=== PATIENT | female | born 1940 | race Caucasian/White ===

== ENCOUNTER → 2017-09-14 | Outpatient (CLI) | payer MEDICARE, OTHER ==
[~2017-09-14] MED LIST: ACE3 PO; CALC-797 PO; Diabetes Supplies MC; LANS30CA70 PO; LIS10 PO; LISI-362 PO; MECL25TA9 PO; METF-411 PO; MULT-885 PO; MULTIVIT PO; OMEG-11 PO; OMEP-125 PO; OMEP-218 PO; PNEU0.5D3 IM; POTA99TA6 PO
[2017-09-14 07:56] LABS: PLATELET COUNT, AUTOMATED 165 K/uL (150-450)
[2017-09-14 08:50] LABS: LDL CHOLESTEROL 118 mg/dl
== END ==
LOC: LAB 07:09
PROVIDERS: ATTEND Nurse Practitioner Family
DX: E78.5 Hyperlipidemia, unspecified (principal); I10 Essential (primary) hypertension; E11.9 Type 2 diabetes mellitus without complications
CPT/HCPCS: 36415; 82040; 82247; 82310; 82374; 82435; 82465; 82565; 82947; 83036; 83718; 84075; 84132; 84155; 84295; 84443; 84450; 84460; 84478; 84520; 85025

== ENCOUNTER → 2017-10-25 | Outpatient (CLI) | payer MEDICARE, OTHER ==
[~2017-10-25] MED LIST changes: +ROSU5TAB3 PO
--- NOTE | 2017-10-25 09:20 | RADIOLOGY IMAGING REPORT ---
FACILITY: [facility] - [place], [place] PATIENT NAME: Violetta Escalante : 1940 MR: [id number] V: [id number] EXAM DATE: ORDERING PHYSICIAN: ALESSIA DUARTE TECHNOLOGIST: [place] [facility] [place]ta Escal[place] : 1940 Visit/Account:[id number] Date of Sevice: 10/25/2017 LIVER HISTORY: Fatty liver COMPARISON: September 26, 2016 FINDINGS: Gallbladder: There are multiple stones within the gallbladder although no evidence of gallbladder wal l thickening pericholecystic fluid or positive Rinaldi sign. Liver: Liver texture slightly heterogeneous although discrete mass is not demonstrated. The liver me asures 15.6 cm in length Common duct: Normal, 4.1 mm diameter. Pancreas: Partially obscured by bowel, visualized aspects unremarkable. Right kidney: Right kidney appears unremarkable as imaged measuring 9.8 cm in length Upper abdominal aorta and IVC: Patent. Ascites: None visualized. IMPRESSION: Cholelithiasis although no evidence of gallbladder wall thickening, pericholecystic fluid, positive M urphy sign or biliary ductal dilatation Liver texture appears slightly heterogeneous although discrete mass is not seen Report Dictated By: Annelise Franco MD at 10/25/2017 9:14 AM Report E-Signed By: Annelise Franco MD at 10/25/2017 9:17 AM WSN:[email or web address]
== END ==
LOC: US 00:20
PROVIDERS: ATTEND Nurse Practitioner Family
DX: K80.20 Calculus of gallbladder without cholecystitis without obstruction (principal)
CPT/HCPCS: 76705

== ENCOUNTER 2017-10-26 00:46 | Day surgery (SDC) | payer MEDICARE, OTHER ==
[~2017-10-26] VITALS: Ht 152.4 cm; Wt 59.0 kg
[2017-10-26 11:10] VITALS: BP 160/71
[2017-10-26] MEDS ORDERED: LIDOCAINE/SOD BICARB 8.4% SYR ID ONE (11:20)
[2017-10-26] MEDS ORDERED: NORMOSOL R SOLN(*) 1000 ML BAG 1,000 ML IV PRN (11:20)
[2017-10-26 13:21] VITALS: BP 93/41
[2017-10-26 13:30] VITALS: BP 101/47
[2017-10-26 14:04] VITALS: BP 130/56
[2017-10-26 14:06] VITALS: BP 144/66
== END 2017-10-26 14:13 | disposition home or self-care (01) ==
LOC: OR 00:46
PROVIDERS: ATTEND Internal Medicine Gastroenterology
DX: K31.7 Polyp of stomach and duodenum (principal); K44.9 Diaphragmatic hernia without obstruction or gangrene; K20.9 Esophagitis, unspecified
CPT/HCPCS: 36415; 82040; 82247; 82310; 82374; 82435; 82565; 82947; 84075; 84132; 84155; 84295; 84450; 84460; 84520; 88305; 88344

== ENCOUNTER → 2017-11-15 | Outpatient (CLI) | payer MEDICARE, OTHER ==
[~2017-11-15] MED LIST changes: -METF-411 PO; +METF-450 PO
--- NOTE | 2017-11-15 13:48 | RADIOLOGY IMAGING REPORT ---
FACILITY: [facility] PATIENT NAME: Violetta Escalante : 1940 MR: [id number] V: [id number] EXAM DATE: ORDERING PHYSICIAN: MANNY MARIE TECHNOLOGIST: [place] [facility] [place] Violetta Escalante : 1940 Visit/Account:[id number] Date of Sevice: 11/15/2017 DEXA Scan Clinical history: Screening. Comparison: 08/21/2012. LUMBAR SPINE: The bone mineral density (BMD) measured from L1-L4 correlates with a Z-score of 2.4 and a T-score of 0.4 which is within normal range as defined by the World Health Organization. The corresponding risk of fracture in the lumbar spine is not increased compared with a young adult r eference population. This value has increased by 2.2 % since the prior study. More than 5% change i s considered significant. HIP: Bone mineral density (BMD) measured in the Left Total Hip region correlates with a Z-score of 1.8 and a T-score of -0.3. The T-score of the femoral neck is -1.0. The lower of the two T-scores is within normal range although the neck is borderline ost eopenic as defined by the World Health Organization. The corresponding risk of fracture in the hip i s minimally increased compared with a young adult reference population. This value has decreased by 7.1 % since the prior study. More than 5% change is considered significant. Bone mineral density (BMD) measured in the Left Femoral Neck region measures 0.893 g/cm?. IMPRESSION: 1. Lumbar spine: Within normal range. There has been no significant change in the bone mineral den sity since the previous exam. 2. Left Total Hip: The neck is borderline osteopenic. There has been significant decrease in the alem ne mineral density since the previous exam. The next DEXA scan of this patient should include the following sites: L1-L4 and Left hip. FRAX? WHO Fracture Risk Assessment Tool link: <http://www.shef.ac.uk/FRAX/tool.jsp?locationValue=9> PLEASE NOTE: 1) The World Health Organization defines low BMD as follows: T-score Normal > -1 Osteopenia < -1 and > -2.5 Osteoporosis < -2.5 without fractures Established osteoporosis < -2.5 with fractures 2) In general, you may wish to consider: Diagnosis Treatment Follow-up DEXA Normal BMD Prevention 2-3 years Osteopenia Prevention/therapy 1-2 years Osteoporosis Therapy Yearly 3) Fracture risk estimated from the T-score is more accurate for vertebral fractures (often spontane ous) than for hip fractures. Report Dictated By: Darrick Cardoso MD at 11/15/2017 1:40 PM Report E-Signed By: Darrick Cardoso MD at 11/15/2017 1:43 PM WSN:[id number]
== END ==
LOC: RAD 01:15
PROVIDERS: ATTEND Nurse Practitioner Family
DX: M85.80 Other specified disorders of bone density and structure, unspecified site (principal)
CPT/HCPCS: 77080

== ENCOUNTER → 2018-03-02 | Outpatient (CLI) | payer MEDICARE, OTHER ==
[2018-03-02 07:59] LABS: LDL CHOLESTEROL 55 mg/dl
== END ==
LOC: LAB 07:09
PROVIDERS: ATTEND Nurse Practitioner Family
DX: E11.9 Type 2 diabetes mellitus without complications (principal); E78.5 Hyperlipidemia, unspecified
CPT/HCPCS: 36415; 82040; 82247; 82310; 82374; 82435; 82465; 82565; 82947; 83036; 83718; 84075; 84132; 84155; 84295; 84450; 84460; 84478; 84520

== ENCOUNTER → 2018-09-28 | Outpatient (CLI) | payer MEDICARE, OTHER ==
[~2018-09-28] MED LIST changes: -OMEP-125 PO; +OMEP-126 PO; +ROSU10TA PO; +ROSU5TAB8 PO; +VARI50KI IM
[2018-09-28 07:31] LABS: PLATELET COUNT, AUTOMATED 146 K/uL (150-450)
[2018-09-28 07:55] LABS: LDL CHOLESTEROL 85 mg/dl
== END ==
LOC: LAB 07:04
PROVIDERS: ATTEND Nurse Practitioner Family
DX: E78.5 Hyperlipidemia, unspecified (principal); R73.09 Other abnormal glucose; R79.89 Other specified abnormal findings of blood chemistry; I10 Essential (primary) hypertension
CPT/HCPCS: 36415; 82040; 82247; 82310; 82374; 82435; 82465; 82565; 82947; 83036; 83718; 84075; 84132; 84155; 84295; 84443; 84450; 84460; 84478; 84520; 85025

== ENCOUNTER → 2018-10-12 | Outpatient (CLI) | payer MEDICARE, OTHER | LOC: US 00:36 | PROVIDERS: ATTEND Nurse Practitioner Family | DX: I34.0 Nonrheumatic mitral (valve) insufficiency (principal); I35.0 Nonrheumatic aortic (valve) stenosis; I35.1 Nonrheumatic aortic (valve) insufficiency | CPT/HCPCS: 93306 ==